=== PATIENT | female | born 1950 | race Caucasian/White ===

== ENCOUNTER 2018-10-13 10:36 | Day surgery (SDC) | payer BC, OTHER | END 2018-10-13 16:00 | disposition home or self-care (01) | LOC: JASU-SURG 10:36 ==

== ENCOUNTER 2022-03-27 04:16 | Day surgery (SDC) | payer BC, OTHER ==
[2022-03-26 14:26] VITALS: BMI 36.6
[2022-03-27] MEDS ORDERED: LIDOCAINE HCL 2% 100 MG/5 ML DISP.SYRIN ONE (11:32)
[2022-03-27] MEDS ORDERED: MIDAZOLAM HCL 2 MG/2 ML SINGLE DOSE VIAL ONE (11:33)
[2022-03-27] MEDS ORDERED: PROPOFOL 20 ML ONE (11:33)
[2022-03-27] MEDS ORDERED: DEXAMETHASONE SOD PHOSPHATE 4 MG/1 ML VIAL ONE (12:57)
[2022-03-27] MEDS ORDERED: ONDANSETRON 4 MG/2 ML VIAL ONE (13:07)
[2022-03-27] MEDS ORDERED: KETOROLAC TROMETHAMINE 30 MG/1 ML VIAL ONE (13:07)
[2022-03-27] MEDS ORDERED: IBUPROFEN 800 MG/8 ML IJ IVPB PRN (13:19)
[2022-03-27] MEDS ORDERED: ONDANSETRON 4 MG/2 ML VIAL IVPUSH PRN ×2 (13:19→13:31)
[2022-03-27] MEDS ORDERED: IBUPROFEN 600 MG TABLET (FP) PO PRN (13:19)
[2022-03-27] MEDS ORDERED: oxyCODONE HCL 5 MG TABLET PO PRN ×3 (13:19→13:31)
[2022-03-27] MEDS ORDERED: ELECTROLYTE-148 SOLN 1,000 ML IV SCH (13:30)
[2022-03-27] MEDS ORDERED: PROMETHAZINE HCL 25 MG/1 ML VIAL IVPUSH PRN (13:31)
[2022-03-27] MEDS ORDERED: ACETAMINOPHEN 1000 MG/100 ML BAG IVPB ONE (13:31)
[2022-03-27] MEDS ORDERED: LACTATED RINGERS SOLUTION 1,000 ML IV SCH (13:45)
[2022-03-27] MEDS ORDERED: ACETAMINOPHEN INJECTION 100 ML IVPB ONE (14:42)
[2022-03-27 16:37] VITALS: RESP 20; TEMP 97.8
[2022-03-27 16:45] VITALS: BP 139/85; PULSE 69
== END 2022-03-27 16:46 | disposition home or self-care (01) ==
LOC: JASU-SURG 04:16
PROVIDERS: ATTEND Obstetrics & Gynecology
PROC: 0UDB7ZX Extraction of Endometrium, Via Natural or Artificial Opening, Diagnostic (ICD-10-PCS; 2022-03-27)
PROC: 0UB98ZX Excision of Uterus, Via Natural or Artificial Opening Endoscopic, Diagnostic (ICD-10-PCS; principal; 2022-03-27 12:30)
DX: N95.0 Postmenopausal bleeding (principal); N84.0 Polyp of corpus uteri
CPT/HCPCS: 88305-TC; 94760